=== PATIENT | male | born 1965 | race Caucasian/White ===

== ENCOUNTER 2022-09-28 16:17 | Emergency (ER) | payer OTHER ==
[2022-09-28] MEDS ORDERED: CLINDAMYCIN 300 MG/2 ML VIAL IM STA (20:35)
--- NOTE | 2022-09-28 20:38 | ED Physician Documentation ---
History of Present Illness - Stated complaint Stated Complaint: L ANKLE PX - Chief complaint Chief Complaint: Ext Problem - History obtained from History obtained from: Patient - Additonal information Additional information: 67-year-old man presents with left ankle pain and swelling/erythema on antibiotics since yesterday. He was hiking at and noticed the redness, went to the walk-in clinic and was given Keflex 500 twice daily. He has had 3 doses and feels his ankle is worse. Patient was hospitalized in February with significant cellulitis at the same spot and told he was near to having a bone infection. MRI was performed on the ankle and he reports he was told that he did not have osteomyelitis but that it was close. Denies fever or injury. Review of Systems Skin: reports: Other (Erythema). denies: Abrasion (s) Musculoskeletal: reports: Extremity pain, Extremity swelling PD PAST MEDICAL HISTORY - Present Medications Home Medications: Ambulatory Orders Medication Instructions Recorded Confirmed Clindamycin [Cleocin] 450 mg PO TID 10 Days #90 cap 09/28/22 - Allergies Allergies/Adverse Reactions: Allergies Allergy/AdvReac Type Severity Reaction Status Date / Time No Known Drug Allergies Allergy Verified 09/28/22 16:43 PD ED PE NORMAL - Vitals Vital signs reviewed: Yes - General General: Alert and oriented X 3, No acute distress, Well developed/nourished - Derm Derm: Normal color, Warm and dry, Other (left medial ankle erythema) - Extremities Extremities: Other (Left medial ankle erythema and swelling with 2+ DP pulses.) Results - Vitals Vitals: Vital Signs - 24 hr 09/28/22 09/28/22 09/28/22 16:39 16:43 18:43 Temperature 36.5 C 36.5 C Heart Rate 96 96 88 Respiratory 16 16 16 Rate Blood Pressure 152/82 H 152/82 H 140/80 H O2 Saturation 98 98 98 09/28/22 20:10 Temperature Heart Rate Respiratory 16 Rate Blood Pressure O2 Saturation Oxygen O2 Source Room air PD Medical Decision Making - ED course ED course: 57-year-old man presents with recurrent cellulitis that is not improving after 3 doses of oral Keflex provided by walk-in clinic. X-ray performed to rule out osteomyelitis and there is no evidence at this time. Plan to provide 1 dose of IM antibiotics and to discharge home on oral antibiotics with close follow-up for skin check in 48 hours at walk in clinic or urgent care. Strict return precautions given. Departure - Departure Disposition: 01 Home, Self Care Clinical Impression: Cellulitis Condition: Good Instructions: Cellulitis Dc Prescriptions: Clindamycin [Cleocin] 450 mg PO TID 10 Days #90 cap Comments: You are seen in the emergency department for cellulitis of the ankle. Your x- ray did not show bone infection. Please follow-up in 24 to 48 hours for a skin check at either urgent care or walk-in clinic. Take your antibiotics (clindamycin, sent electronically to [facility] in [place]). Return if you experience increasing redness past the lines that were drawn.
[2022-09-28] MEDS ORDERED: cefTRIAXone 1 GM VIAL IM STA (21:03)
[2022-09-28] MEDS ORDERED: LIDOCAINE 1% 2 ML VIAL MC ONE (21:03)
--- NOTE | 2022-09-28 21:47 | XRAY Report ---
PROCEDURE: Ankle 3 View LT INDICATIONS: ankle swelling, redness, pain TECHNIQUE: 3 views of the ankle were acquired. COMPARISON: None. FINDINGS: Bones: No definite acute fractures or dislocations. There is a small ossicle inferior to the medial malleolus likely representing sequelae of a prior avulsion injury. Ankle mortise is normally aligned. 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 Mild degeneration demonstrated dorsa lly at the talonavicular articulation. No suspicious bony lesions. Soft tissues: There is a small tibiotalar joint effusion. Achilles tendon appears intact, with a sma ll enthesophyte at its insertion. IMPRESSION: 1. No acute fracture or dislocation. 2. Sequela of a prior avulsion injury inferior to the medial malleolus. 3. 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 Reviewed by: Victorino Segovia MD on 09/28/2022 9:45 PM PST Approved by: Victorino Segovia MD on 09/28/2022 9:45 PM PST Station ID: [id number]
[2022-09-28 22:06] VITALS: BP 130/80
== END 2022-09-28 22:18 | disposition home or self-care (01) ==
LOC: ED 16:17
DX: L03.116 Cellulitis of left lower limb (principal)
CPT/HCPCS: 96372; 99283